=== PATIENT | male | born 1970 | race Caucasian/White ===

== ENCOUNTER 2022-12-09 13:38 | Outpatient (CLI) | payer OTHER | END 2022-12-09 13:39 | disposition short-term general hospital (02) | LOC: EMS 13:38 | DX: M54.9 Dorsalgia, unspecified (principal); R51.9 Headache, unspecified; M54.2 Cervicalgia; M25.551 Pain in right hip; W17.89XA Other fall from one level to another, initial encounter; Y92.828 Other wilderness area as the place of occurrence of the external cause ==